=== PATIENT | male | born 1975 | race Two or more races ===

== ENCOUNTER 2016-12-24 15:15 | Emergency (ER) | payer MEDICAID ==
[~2016-12-24] VITALS: Ht 180.3 cm; Wt 121.2 kg
[2016-12-24 15:19] VITALS: BP 152/83
[2016-12-24] MEDS ORDERED: METHOCARBAMOL 750 MG TABLET PO ONE (16:00)
[2016-12-24] MEDS ORDERED: KETOROLAC 30 MG/1 ML IM ONE (16:00)
== END 2016-12-24 16:22 | disposition home or self-care (01) ==
LOC: ED 16:14
DX: S39.012A Strain of muscle, fascia and tendon of lower back, initial encounter (principal); X58.XXXA Exposure to other specified factors, initial encounter; Y93.89 Activity, other specified; Y92.89 Other specified places as the place of occurrence of the external cause; Y99.8 Other external cause status; E11.9 Type 2 diabetes mellitus without complications
CPT/HCPCS: 96372; 99283; J1885

== ENCOUNTER 2017-02-22 12:19 | Emergency (ER) | payer MEDICAID ==
[~2017-02-22] VITALS: Ht 180.3 cm; Wt 119.2 kg
[2017-02-22 12:25] VITALS: BP 162/98
== END 2017-02-22 13:15 | disposition home or self-care (01) ==
LOC: ED 12:45
DX: K02.9 Dental caries, unspecified (principal); E11.9 Type 2 diabetes mellitus without complications; J45.909 Unspecified asthma, uncomplicated
CPT/HCPCS: 99283

== ENCOUNTER 2017-04-25 15:49 | Emergency (ER) | payer MEDICAID ==
[~2017-04-25] VITALS: Ht 180.3 cm; Wt 124.3 kg
[2017-04-25 16:00] VITALS: BP 151/81
[2017-04-25] MEDS ORDERED: DIAZEPAM 5 MG TABLET PO ONE (16:30)
[2017-04-25] MEDS ORDERED: KETOROLAC 30 MG/1 ML IM ONE (16:30)
[2017-04-25] MEDS ORDERED: DIAZEPAM 5 MG TABLET ONE (16:52)
[2017-04-25] MEDS ORDERED: KETOROLAC 30 MG/1 ML ONE (16:52)
== END 2017-04-25 17:38 | disposition home or self-care (01) ==
LOC: ED 17:15
DX: S39.012A Strain of muscle, fascia and tendon of lower back, initial encounter (principal); E11.9 Type 2 diabetes mellitus without complications; X58.XXXA Exposure to other specified factors, initial encounter; Y93.89 Activity, other specified; Y92.89 Other specified places as the place of occurrence of the external cause; Y99.8 Other external cause status
CPT/HCPCS: 96372; 99283; J1885